=== PATIENT | male | born 1965 ===

== ENCOUNTER 2023-03-11 12:03 | Day surgery (SDC) | payer BC ==
[~2023-03-11] VITALS: Ht 180.3 cm; Wt 104.3 kg
[2023-03-11] MEDS ORDERED: LIDOCAINE 2% 100 MG/5 ML UJET TP ONE ×2 (13:04→13:12)
[2023-03-11] MEDS ORDERED: KETOROLAC 30 MG/ML VIAL ONE (13:12)
[2023-03-11] MEDS ORDERED: KETOROLAC 30 MG/ML VIAL IVP ONE (14:30)
[2023-03-11] MEDS ORDERED: KETOROLAC 30 MG/ML VIAL IM ONE (15:00)
== END 2023-03-11 13:55 | disposition home or self-care (01) ==
LOC: MOR 12:03 → MMU 12:10 → MOR 13:55
PROVIDERS: ATTEND Internal Medicine Gastroenterology
DX: K64.1 Second degree hemorrhoids (principal); E03.9 Hypothyroidism, unspecified; Z79.899 Other long term (current) drug therapy
CPT/HCPCS: 45350; J1885